=== PATIENT | male | born 1985 | race Caucasian/White ===

== ENCOUNTER 2016-06-29 13:31 | Emergency (ER) | payer OTHER ==
[~2016-06-29] VITALS: Ht 172.7 cm; Wt 89.1 kg
[2016-06-29 13:54] VITALS: BP 142/81
[2016-06-29] MEDS ORDERED: ZYPREXA10 MG PO ×2 (14:45→15:30)
== END 2016-06-29 15:40 | disposition home or self-care (01) ==
LOC: EME 13:31
DX: F41.1 Generalized anxiety disorder (principal); Z76.0 Encounter for issue of repeat prescription; F17.200 Nicotine dependence, unspecified, uncomplicated; Z91.040 Latex allergy status
CPT/HCPCS: 90832; 99281; 99284

== ENCOUNTER 2016-07-14 15:00 | Emergency (ER) | payer OTHER ==
[~2016-07-14] VITALS: Ht 172.7 cm; Wt 91.7 kg
[~2016-07-14 15:00] MED LIST: ZYPREXA10 MG PO
[2016-07-14] MEDS ORDERED: ZYPREXA10 MG PO (17:11)
[2016-07-14 17:48] VITALS: BP 125/80
== END 2016-07-14 17:50 | disposition home or self-care (01) ==
LOC: EME 15:00
DX: Z76.0 Encounter for issue of repeat prescription (principal)
CPT/HCPCS: 99281; 99283

== ENCOUNTER 2017-08-08 11:37 | Emergency (ER) | payer OTHER ==
[~2017-08-08] VITALS: Ht 172.7 cm; Wt 101.6 kg
[2017-08-08] MEDS ORDERED: ERYTHROMYC1 APPLICAT BOTH EYES (12:01)
[2017-08-08 12:22] VITALS: BP 100/72
== END 2017-08-08 12:25 | disposition home or self-care (01) ==
LOC: EME 11:37
DX: H10.9 Unspecified conjunctivitis (principal); F17.200 Nicotine dependence, unspecified, uncomplicated
CPT/HCPCS: 99281; 99283